=== PATIENT | female | born 1945 | race Caucasian/White ===

== ENCOUNTER 2020-05-20 04:24 | Inpatient (IN) | payer MEDICARE ==
--- NOTE | 2020-05-20 07:14 | CT ---
PRELIMINARY REPORT/[facility]/EMERGENCY AFTER HOURS PROCEDURE EXAM: CT Head Without Intravenous Contrast. CLINICAL HISTORY: FALL, NO LOC. TRIPPED MECHANICAL FALL. LEFT LEG PAIN. PATIENT WAS ABLE TO WALK FOR EMS. TECHNIQUE: Axial computed tomography images of the head/brain without intravenous contrast. COMPARISON: None provided. FINDINGS: BRAIN: No acute intraparenchymal hemorrhage. No mass lesion. No CT evidence for acute territorial infarct. N o midline shift or extra-axial collection. Mild age-related atrophy. Mild periventricular deep white matter small vessel change. Old lacunar infarction of the left basal ganglia. VENTRICLES: No hydrocephalus. ORBITS: The orbits are unremarkable. SINUSES AND MASTOIDS: The paranasal sinuses and mastoid air cells are clear. SOFT TISSUES: No significant facial or scalp soft tissue swelling evident. No radiopaque foreign body is seen. BONES: No acute skull fracture. IMPRESSION: No acute intracranial abnormality. There is mild age-related atrophy and periventricular deep white matter small vessel change. Old infarction of the left basal ganglia. ELECTRONICALLY SIGNED BY: Laura Rivera DO May 20, 2020 5:37:23 AM [employer]PERVISOR This report is intended for review by the ordering physician only, in accordance of law. If you recei ve this report in error, please call [facility] at [phone]. FINAL REPORT Exam: Head CT without contrast HISTORY: Fall. Pain. COMPARISON: none FINDINGS: Hemorrhage: No intraparenchymal hemorrhage or extra-axial hematoma. Brain parenchyma: Cortical borrego-white matter differentiation is preserved. No mass effect or midline shift. Basilar cisterns are patent.Remote lacunar infarcts involving the left and right deep borrego matter structures as well as the nevarez radiata bilaterally Ventricular system: Ventricles and sulci are patent and symmetric. Calvarium: Intact. Sinuses and mastoid air cells: Adequate aeration. IMPRESSION: 1. This report is in agreement with initial report by [facility]. 2. No intracranial post traumatic sequelae. Transcribed Date/Time: 05/20/2020 8:24 AM
--- NOTE | 2020-05-20 07:39 | RAD ---
AP view of the pelvis INDICATION: Trauma COMPARISON: None. FINDINGS: Bones: No acute fracture or subluxation is demonstrated. Bone mineralization is diminished. Hips: There is mild degenerative change of both hips. SI joints and symphysis pubis: Normal appearing. Intrapelvic contents: Within normal limits. IMPRESSION: No acute osseous abnormality.
--- NOTE | 2020-05-20 07:39 | CT ---
EXAM: CT Lower Ext Lt WO Con DATE: 05/20/2020 6:30 AM INDICATION: History of mechanical fall with left hip pain COMPARISON: Left hip radiographs dated May 20, 2020 FINDING: No displaced left hip fracture is evident. There is diffuse osteopenia. There is mild degen erative arthrosis of the left hip and left knee. There is mild degenerative change of the symphysis pubis. No enlarged lymph nodes are evident. Visualized intrapelvic contents appear within normal limi ts. The uterus is surgically absent. IMPRESSION:No acute osseous abnormality.
--- NOTE | 2020-05-20 07:40 | RAD ---
XR Hip Lt 2-3 View INDICATION: Fall with left hip pain COMPARISON: None FINDINGS: Bones: There is diffuse osteopenia. No acute fracture or subluxation is demonstrated. Enthesopathic c hanges seen off the left ischial tuberosity. Hip joint: Mild degenerative changes seen involving the left hip. SI joints and symphysis pubis: Radiographically normal. Intrapelvic contents: Visualized bowel gas pattern is within normal limits. Surrounding soft tissues: Radiographically normal. IMPRESSION: 1. No acute osseous abnormality.
[2020-05-20 10:56] LABS: #Eosinphils 0.1 thou/uL (0.0-0.7); #Lymphocytes 1.2 thou/uL (1.20-3.40); #Monocytes 0.9 thou/uL (0.11-0.59); %Basophils 0.5 % (0.0-1.0); %Eosinophils 1.6 % (0.0-10.0); %Lymphocytes 19.6 % (21.0-51.0); %Neutrophils 64.3 % (42.0-75.0); Hemoglobin 11.5 g/dL (12.0-16.0); Mean Corpuscular HGB CONC 32.9 g/dL (32.0-36.0); Mean Corpuscular Hemoglobin 28.2 pg (27.0-31.0); Mean Corpuscular Volume 85.6 fL (78.0-98.0); Mean Platelet Volume 8.6 fL (7.4-10.4); Platelet Count 170 thou/uL (130-400); RBC Distribution Width 12.5 % (11.5-14.5); Red Blood Cell (RBC) Count 4.09 mill/uL (4.20-5.40); White Blood Cell (WBC) Count 6.2 thou/uL (4.8-10.8)
[2020-05-20 10:59] LABS: Bilirubin Negative (Negative); Blood, Urine Negative (Negative); Clarity Clear (Clear); Glucose, Urine (Dipstick) Normal (Negative); Ketone, Urine 10 mg/dL (Negative); Leukocyte Negative Leu/uL (Negative); Nitrite Negative (Negative); Protein, Urine (Dipstick) 20 mg/dL (Neg-Trace); Specific Gravity, Urine 1.023 (1.002-1.036); Urobilinogen Normal mg/dL (Less than 2)
--- NOTE | 2020-05-20 11:04 | RAD ---
CHEST 1 VIEW: Date: 05/20/2020 HISTORY: Injury from a fall. COMPARISON: 12/02/2012. FINDINGS: Less than optimal inspiration with some minimal horizontal linear and parenchymal changes in the mid and lower lung zones, having more the appearance of subsegmental atelectasis. No evidence for pneumot horax. No confluent pneumonia. No significant pleural effusion. IMPRESSION: Bibasilar horizontal linear and parenchymal changes most suggestive of bilateral partial atelectasis without other acute process. POS: AH
[2020-05-20 11:20] LABS: ALT (SGPT) 16 U/L (8-55); AST (SGOT) 25 U/L (5-34); Albumin 3.2 g/dL (3.4-4.8); Alkaline Phosphatase 66 U/L (40-110); Anion Gap 13 mmol/L (10-20); BUN (Urea Nitrogen) 13 mg/dL (9.8-20.1); Bilirubin, Total 0.6 mg/dL (0.2-1.2); CK (CPK) 492 U/L (29-168); Calc. Creatinine Clearance 0 mL/min (70-130); Carbon Dioxide 24 mmol/L (23-31); Chloride 106 mmol/L (98-107); Globulin 2.4 g/dL (2.4-3.5); Glucose 97 mg/dL (83-110); Magnesium 1.8 mg/dL (1.6-2.6); Protein, Total 5.6 g/dL (6.0-8.3); Sodium 140 mmol/L (136-145)
--- NOTE | 2020-05-20 12:33 | PDOC.FPRHP ---
- History of Present Illness Chief Complaint: AMS, falls History of Present Illness: 75yo F presents from home with complaint of worsening mental status and recurrent falls. Pt lives with son who is also MPOA. Majority of hx was obtained from him. States pt has Hx of 2 previous CVA's. Has had declining mental status since first CVA 2 years ago. 8 months ago was seen by neuro specialist in [place] and diagnosed with a degenerative brain disease that he does not recall the name for and was started on carbidopa levodopa - states the disease is not parkinson's but is similar to it (Lewey Body?). Son states that over past 8 months pt has required more assistance and has been living with him. Over the past 2 weeks the patient has seemed to develop a rapid decline and has needed assistance with essentially all activity of daily living. She is able to ambulate but with assistance. He states she has been falling more frequently as well. She fell yesterday and when helping her up he injured his back which he has chronic problems with. She fell again last night and he needed to call his brother for assistance getting her up. They were concerned she injured something so they brought her to the ED to be evaluated. ED Course: Received 40 meq potassium Xray of hip, chest CT head - Allergies/Adverse Reactions Allergies Allergy/AdvReac Type Severity Reaction Status Date / Time erythromycin base Allergy Mild Rash Verified 05/20/20 12:38 - History PMHx: CVA x2, neurodegenerative dementia, HTN, HLD, Depression PSHx: Hysterectomy FHx: Not pertinent Social: PCP: Dr. Kinney, [facility] - Review of Systems ROS unobtainable: due to mental status Musculoskeletal: reports: pain (left hip pain) - Vital signs BP: 128/53, MAP: 78, Pulse: 72, Resp: 24, Temp: 99.3 (Oral), Pain: 7, O2 sat: 98 on (Room Air) - Physical Exam Constitutional: NAD, well developed HEENT: PERRLA, EOMI, MMM Heart: RRR, normal S1/S2 Lungs: CTAB, no respiratory distress Abdomen: soft, non-tender, bowel sounds present Neurological: no focal deficit, CN II-XII intact -Neurological: Difficult for patient to hold focus, orientation waxes and wanes but at best is A&O x3, seems confused by some simple questions but follows commands well Skin: no rash/lesions, good turgor Heme/Lymphatic: no unusual bruising or bleeding, no petechia -Psychiatric: Distant and recent memory impaired FMR H&P: Results - Labs Result Diagrams: 05/20/20 10:34 05/20/20 10:34 Lab results: WBC 6.2 thou/uL (4.8-10.8) 05/20/20 10:34 Hgb 11.5 g/dL (12.0-16.0) L 05/20/20 10:34 Hct 35.0 % (36.0-47.0) L 05/20/20 10:34 MCV 85.6 fL (78.0-98.0) 05/20/20 10:34 Plt Count 170 thou/uL (130-400) 05/20/20 10:34 Neutrophils % 64.3 % (42.0-75.0) 05/20/20 10:34 Sodium 140 mmol/L (136-145) 05/20/20 10:34 Potassium 3.0 mmol/L (3.5-5.1) L 05/20/20 10:34 Chloride 106 mmol/L (98-107) 05/20/20 10:34 Carbon Dioxide 24 mmol/L (23-31) 05/20/20 10:34 BUN 13 mg/dL (9.8-20.1) 05/20/20 10:34 Creatinine 0.69 mg/dL (0.6-1.1) 05/20/20 10:34 Glucose 97 mg/dL (83-110) 05/20/20 10:34 Calcium 8.0 mg/dL (7.8-10.44) 05/20/20 10:34 Total Bilirubin 0.6 mg/dL (0.2-1.2) 05/20/20 10:34 AST 25 U/L (5-34) 05/20/20 10:34 ALT 16 U/L (8-55) 05/20/20 10:34 Alkaline Phosphatase 66 U/L (40-110) 05/20/20 10:34 Creatine Kinase 492 U/L (29-168) H 05/20/20 10:34 Serum Total Protein 5.6 g/dL (6.0-8.3) L 05/20/20 10:34 Albumin 3.2 g/dL (3.4-4.8) L 05/20/20 10:34 Urine Ketones 10 mg/dL (Negative) A 05/20/20 10:20 Urine Blood Negative (Negative) 05/20/20 10:20 Urine Nitrite Negative (Negative) 05/20/20 10:20 Ur Leukocyte Esterase Negative Jerry/uL (Negative) 05/20/20 10:20 - Radiology Interpretation Chest x-ray Status: report reviewed by me (Bibasilar horizontal linear and parenchymal changes most suggestive of bilateral partial atelectasis without other acute process.) CT scan - head Status: report reviewed by me (No acute intracranial abnormality. There is mild age-related atrophy and periventricular deep white matter small vessel change. Old infarction of the left basal ganglia.) Other Status: report reviewed by me (hip/pelvis xray and CT - no acute osseos abnormal ity) FMR H&P: A/P - Plan Encephalopathy - Subacute on chronic - Likely related to neuro degenerative process - CT confirmed cerebrovascular disease and previous CVA - No signs of acute stroke warranting MRI - PT/OT to assess - Continue home rx Chronic HTN, HLD, vascular disease - Continue asa, lisinopril, statin Depression - Was taking two SSRI at home - Will continue sertraline only, son thinks this was supposed to be correct rx Diet: Regular IVF: LR @ 100ml x 1L Code status: DNAR VTE: ppx lovenox PCP: Giuseppe Dietrich Dispo: Admit to medical obs. ELOS <48hr. FMR H&P: Upper Level - Plan Date/Time: 05/20/20 5084
[2020-05-20] MEDS ORDERED: Potassium Chloride 40 MEQ in Sodium Chloride 0.9% 250 ML 250 ML IVPB SCH (12:45)
[2020-05-20 14:42] LABS: Hemoglobin A1c 5.7 % (4.0-6.0)
[2020-05-20] MEDS ORDERED: Potassium Chloride 20 MEQ in Lactated Ringer's 1,000 ML IV SCH (15:28)
[2020-05-20] MEDS ORDERED: Senokot S 8.6-50 MG TAB PO PRN (15:28)
[2020-05-20 16:30] VITALS: BMI 38.2
[2020-05-20] MEDS: Acetaminophen 325 MG TAB PO PRN (19:04)
[2020-05-20] MEDS: Carbidopa/Levodopa 25-100 mg Tablet PO SCH (19:53)
[2020-05-20] MEDS: Pramipexole Di-HCl 0.25 MG TAB PO SCH (19:53)
[2020-05-21] MEDS: Levothyroxine Sodium 100 MCG TAB PO SCH (05:20)
[2020-05-21 05:43] LABS: #Eosinphils 0.1 thou/uL (0.0-0.7); #Lymphocytes 0.8 thou/uL (1.20-3.40); #Monocytes 0.9 thou/uL (0.11-0.59); #Neutrophils 5.8 thou/uL (1.40-6.50); %Basophils 0.4 % (0.0-1.0); %Eosinophils 1.1 % (0.0-10.0); %Lymphocytes 10.7 % (21.0-51.0); %Monocytes 11.3 % (0.0-10.0); %Neutrophils 76.5 % (42.0-75.0); Hemoglobin 11.7 g/dL (12.0-16.0); Mean Corpuscular HGB CONC 32.8 g/dL (32.0-36.0); Mean Corpuscular Hemoglobin 28.2 pg (27.0-31.0); Mean Platelet Volume 8.7 fL (7.4-10.4); Platelet Count 183 thou/uL (130-400); RBC Distribution Width 12.6 % (11.5-14.5); Red Blood Cell (RBC) Count 4.15 mill/uL (4.20-5.40); White Blood Cell (WBC) Count 7.6 thou/uL (4.8-10.8)
--- NOTE | 2020-05-21 05:52 | PDOC.FM ---
- Subjective Subjective: Pt resting comfortably in bed this AM. No acute events overnight. - Objective Vital Signs & Weight: Vital Signs (12 hours) Temp Pulse Resp BP BP Pulse Ox 05/21/20 03:29 98.8 F 78 16 152/80 H 93 L 05/20/20 23:12 98.7 F 77 16 131/75 96 05/20/20 20:05 98.4 F 73 16 123/69 94 L 05/20/20 19:50 98.4 F 73 16 123/69 94 L Weight Weight 88.451 kg I&O: 05/19/20 05/20/20 05/21/20 06:59 06:59 06:59 Intake Total 2240 Balance 2240 Result Diagrams: 05/21/20 05:16 05/21/20 05:17 Phys Exam - Physical Examination Constitutional: NAD HEENT: moist MMs Neck: supple Respiratory: no wheezing, no rales, no rhonchi, clear to auscultation bilateral Cardiovascular: RRR, no significant murmur, no rub Gastrointestinal: soft, non-tender, no distention, positive bowel sounds Dx/Plan - Plan Plan: ##Encephalopathy - Subacute on chronic - Likely related to neuro degenerative process - CT confirmed cerebrovascular disease and previous CVA - No signs of acute stroke warranting MRI - PT/OT to assess - Continue home rx ##Chronic HTN, HLD, vascular disease - Continue asa, lisinopril, statin ##Depression - Was taking two SSRI at home - Will continue sertraline only, son thinks this was supposed to be correct rx Diet: Regular IVF: LR @ 100ml x 1L Code status: DNAR VTE: ppx lovenox PCP: Giuseppe Dietrich Dispo as of 05/21: Planned for patient to be discharged home today and will need to be admitted to rehab from outpatient setting. Family aware of this plan and are agreeable.
[2020-05-21 06:06] LABS: Anion Gap 13 mmol/L (10-20); BUN (Urea Nitrogen) 11 mg/dL (9.8-20.1); Calc. Creatinine Clearance 111 mL/min (70-130); Calcium 7.8 mg/dL (7.8-10.44); Carbon Dioxide 22 mmol/L (23-31); Chloride 107 mmol/L (98-107); Glucose 111 mg/dL (83-110); Potassium 3.3 mmol/L (3.5-5.1); Sodium 139 mmol/L (136-145)
[2020-05-21] MEDS ORDERED: Potassium Chloride 40 MEQ in Sodium Chloride 0.9% 250 ML 250 ML IVPB SCH (08:15)
[2020-05-21] MEDS ORDERED: FLU VACC QS2020-21(65YR UP)/PF 240 MCG/0.7 ML SYRINGE IM ONE (09:00)
[2020-05-21] MEDS: Pramipexole Di-HCl 0.25 MG TAB PO SCH ×2 (10:02→19:36)
[2020-05-21] MEDS: Lisinopril 20 MG TAB PO SCH (10:04)
[2020-05-21] MEDS: Enoxaparin Sodium 40 MG/0.4 ML SYRINGE SC SCH (10:04)
[2020-05-21] MEDS: Carbidopa/Levodopa 25-100 mg Tablet PO SCH ×3 (10:04→19:35)
[2020-05-21 13:44] LABS: Anion Gap 12 mmol/L (10-20); BUN (Urea Nitrogen) 9 mg/dL (9.8-20.1); Calc. Creatinine Clearance 106 mL/min (70-130); Calcium 7.6 mg/dL (7.8-10.44); Carbon Dioxide 21 mmol/L (23-31); Chloride 107 mmol/L (98-107); Glucose 155 mg/dL (83-110); Magnesium 1.9 mg/dL (1.6-2.6); Potassium 3.4 mmol/L (3.5-5.1); Sodium 137 mmol/L (136-145)
[2020-05-21] MEDS: Acetaminophen 325 MG TAB PO PRN (16:34)
[2020-05-21] MEDS ORDERED: Potassium Chloride 20 MEQ TAB PO SCH (17:00)
[2020-05-21] MEDS: Loperamide HCl 2 MG CAP PO PRN (19:35)
[2020-05-21 22:17] LABS: SARS-CoV-2 MS2 Positive; SARS-CoV-2 N Gene Negative; SARS-CoV-2 S Gene Negative; SARS-CoV-2 by NAA Not Detected (NotDetected); SARS-CoV-2 orf1ab Negative
[2020-05-22] MEDS: Acetaminophen 325 MG TAB PO PRN (05:38)
[2020-05-22] MEDS: Levothyroxine Sodium 100 MCG TAB PO SCH (05:38)
--- NOTE | 2020-05-22 05:50 | PDOC.FM ---
- Subjective Subjective: Pt resting in bed this AM. No acute events overnight. Tells me that she would like to be called Brina and not Lauren. - Objective Vital Signs & Weight: Vital Signs (12 hours) Temp Pulse Resp BP Pulse Ox 05/22/20 03:47 97.5 F L 60 20 145/78 H 96 05/21/20 22:46 97.5 F L 64 20 111/69 95 05/21/20 20:22 99.1 F 62 20 120/73 94 L 05/21/20 20:00 94 L Weight Weight 88.451 kg I&O: 05/20/20 05/21/20 05/22/20 06:59 06:59 06:59 Intake Total 2240 2410 Balance 2240 2410 Result Diagrams: 05/21/20 05:16 05/22/20 05:24 Phys Exam - Physical Examination Constitutional: NAD HEENT: moist MMs Neck: supple Respiratory: no wheezing, no rales, no rhonchi, clear to auscultation bilateral Cardiovascular: RRR, no significant murmur, no rub Gastrointestinal: soft, non-tender, no distention, positive bowel sounds Deviation from normal: A&O x1 Dx/Plan - Plan Plan: ##Encephalopathy - Subacute on chronic - Likely related to neuro degenerative process, Lewy Body Dimentia - CT confirmed cerebrovascular disease and previous CVA - No signs of acute stroke warranting MRI - PT/OT assessed pt and advised SNF vs. Inpt Rehab - Continue home rx ##Chronic HTN, HLD, vascular disease - Continue ASA, lisinopril, statin ##Depression - Was taking two SSRI at home - Will continue sertraline only, son thinks this was supposed to be correct rx Diet: Regular Code: DNAR VTE: Lovenox PCP: LOSS PREVENTION MANAGER Dispo as of 05/22: Planned for patient to be discharged home however, PT and OT recommended SNF vs. Inpt Rehab. Pending CM and placement at this time. Addendum - Attending - Attending Attestation Date/Time: 05/22/20 1740 I personally evaluated the patient and discussed the management with Dr. Baca. I agree with the History, Examination, Assessment and Plan documented above with any addition or exceptions noted below. Pt stable and still confused. Awaiting case mgmt for placement. Will f/u with PT/OT recs.
[2020-05-22 06:11] LABS: Anion Gap 12 mmol/L (10-20); BUN (Urea Nitrogen) 6 mg/dL (9.8-20.1); Calc. Creatinine Clearance 113 mL/min (70-130); Calcium 7.5 mg/dL (7.8-10.44); Carbon Dioxide 22 mmol/L (23-31); Chloride 110 mmol/L (98-107); Glucose 96 mg/dL (83-110); Magnesium 1.9 mg/dL (1.6-2.6); Potassium 3.9 mmol/L (3.5-5.1); Sodium 140 mmol/L (136-145)
[2020-05-22 06:16] LABS: Phosphorus 1.9 mg/dL (2.3-4.7)
[2020-05-22] MEDS ORDERED: PHOS-NAK 1 PKT PACK PO SCH (09:00)
[2020-05-22] MEDS: Pramipexole Di-HCl 0.25 MG TAB PO SCH ×2 (10:34→20:27)
[2020-05-22] MEDS: Enoxaparin Sodium 40 MG/0.4 ML SYRINGE SC SCH (10:34)
[2020-05-22] MEDS: Lisinopril 20 MG TAB PO SCH (10:35)
[2020-05-22] MEDS: Carbidopa/Levodopa 25-100 mg Tablet PO SCH ×3 (10:35→20:27)
[2020-05-23] MEDS: Levothyroxine Sodium 100 MCG TAB PO SCH (05:17)
--- NOTE | 2020-05-23 05:55 | PDOC.FM ---
- Subjective Subjective: Pt resting in bed this AM. No acute events overnight. - Objective Vital Signs & Weight: Vital Signs (12 hours) Temp Pulse Resp BP Pulse Ox 05/22/20 23:41 98.7 F 60 18 135/71 98 05/22/20 19:46 98.7 F 67 18 128/66 94 L Weight Weight 88.451 kg I&O: 05/21/20 05/22/20 05/23/20 06:59 06:59 06:59 Intake Total 2240 2410 720 Balance 2240 2410 720 Result Diagrams: 05/21/20 05:16 05/23/20 05:19 Phys Exam - Physical Examination Constitutional: NAD HEENT: moist MMs Neck: supple Respiratory: no wheezing, no rales, no rhonchi, clear to auscultation bilateral Cardiovascular: RRR, no significant murmur, no rub, gallop Gastrointestinal: soft, non-tender, no distention, positive bowel sounds Musculoskeletal: pulses present Neurological: moves all 4 limbs Deviation from normal: A&O x 1 Skin: no rash, normal turgor, cap refill <2 seconds Dx/Plan - Plan Plan: ##Encephalopathy 2/2 to chronic dementia with acute worsening - Likely related to neuro degenerative process, Lewy Body Dementia - CT confirmed cerebrovascular disease and previous CVA - No signs of acute stroke warranting MRI - PT/OT assessed pt and advised SNF vs. Inpt Rehab,have continued to work with pt, pt apparently has difficulty following commands - Continue home rx ##Chronic HTN, HLD, vascular disease - Continue ASA, lisinopril, statin ##Depression - Was taking two SSRI at home - Will continue sertraline only, son thinks this was supposed to be correct rx ##Electrolyte abnormalities -Has had hypokalemia, been repleating as necessary -Phos 1.9, Mag 1.9 -awaiting AM labs Code: DNAR Diet: Regular VTE: Lovenox PCP: PROPERTY ADMINISTRATOR Dispo as of 05/23: PT and OT recommended SNF vs. Inpt Rehab. Pending CM and placement at this time. Addendum - Attending - Attending Attestation Date/Time: 05/23/20 0312 I personally evaluated the patient and discussed the management with Dr. Baca. I agree with the History, Examination, Assessment and Plan documented above with any addition or exceptions noted below. Patient complained of chest pain this morning. She is unable to give additional history. Pt is tender to palpation of chest but will get a set of cardiac enzymes and ekg to further evaluate.
[2020-05-23 06:06] LABS: Anion Gap 13 mmol/L (10-20); BUN (Urea Nitrogen) 8 mg/dL (9.8-20.1); Calc. Creatinine Clearance 113 mL/min (70-130); Calcium 7.7 mg/dL (7.8-10.44); Carbon Dioxide 22 mmol/L (23-31); Glucose 106 mg/dL (83-110); Magnesium 1.8 mg/dL (1.6-2.6); Potassium 3.9 mmol/L (3.5-5.1); Sodium 137 mmol/L (136-145)
[2020-05-23 06:10] LABS: Chloride 106 mmol/L (98-107)
[2020-05-23] MEDS: Lactated Ringer's 1,000 ML IV SCH ×3 (06:26→19:48)
[2020-05-23] MEDS: Carbidopa/Levodopa 25-100 mg Tablet PO SCH ×3 (09:36→21:35)
[2020-05-23] MEDS: Lisinopril 20 MG TAB PO SCH (09:36)
[2020-05-23] MEDS: Pramipexole Di-HCl 0.25 MG TAB PO SCH ×2 (09:36→19:48)
[2020-05-23] MEDS: Enoxaparin Sodium 40 MG/0.4 ML SYRINGE SC SCH (09:37)
[2020-05-23 10:32] LABS: Troponin I Less than 0.010 ng/mL (< 0.028)
[2020-05-23] MEDS ORDERED: Ketorolac Tromethamine 30 MG/ML VIAL IVP SCH (10:45)
[2020-05-24] MEDS: Lactated Ringer's 1,000 ML IV SCH ×2 (05:24→15:26)
[2020-05-24] MEDS: Levothyroxine Sodium 100 MCG TAB PO SCH (05:24)
--- NOTE | 2020-05-24 06:11 | PDOC.FM ---
- Subjective Subjective: Pt resting in bed this AM. No acute events overnight. States that her son Jose De Jesus came to see her yesterday and this made her happy. - Objective Vital Signs & Weight: Vital Signs (12 hours) Temp Pulse Resp BP Pulse Ox 05/24/20 00:22 98.2 F 61 19 121/74 96 05/23/20 19:18 98.7 F 64 20 123/76 93 L Weight Weight 88.451 kg I&O: 05/22/20 05/23/20 05/24/20 06:59 06:59 06:59 Intake Total 2410 720 1580 Output Total 650 2100 Balance 2410 70 -520 Result Diagrams: 05/24/20 07:35 05/24/20 06:01 Phys Exam - Physical Examination Constitutional: NAD HEENT: moist MMs Neck: supple Respiratory: no wheezing, no rales, no rhonchi, clear to auscultation bilateral Cardiovascular: RRR, no significant murmur, no rub Gastrointestinal: soft, non-tender, no distention, positive bowel sounds Deviation from normal: A&O x 2 Skin: normal turgor Dx/Plan - Plan Plan: ##Delirium 2/2 acute worsening of dementia - Likely related to neuro degenerative process, Lewy Body Dementia - CT confirmed cerebrovascular disease and previous CVA - No signs of acute stroke warranting MRI - PT/OT assessed pt and advised SNF vs. Inpt Rehab,have continued to work with pt, pt apparently has difficulty following commands - Continue home rx ##Chronic HTN, HLD, vascular disease - Continue ASA, lisinopril, statin ##Depression - Was taking two SSRI at home - Will continue sertraline only, son thinks this was supposed to be correct rx ##Electrolyte abnormalities -Has had hypokalemia, been repleating as necessary -Phos 1.9, Mag 1.9, were replaced -monitoring BMPs Code: DNAR Diet: Regular VTE: Lovenox PCP: NYLON MENDER Dispo as of 05/24: PT and OT recommended SNF vs. Inpt Rehab. Pending CM and placement at this time. Addendum - Attending - Attending Attestation Date/Time: 05/24/20 1206 I personally evaluated the patient and discussed the management with Dr. Baca. I agree with the History, Examination, Assessment and Plan documented above with any addition or exceptions noted below.
[2020-05-24 06:43] LABS: Anion Gap 14 mmol/L (10-20); BUN (Urea Nitrogen) 7 mg/dL (9.8-20.1); Calc. Creatinine Clearance 111 mL/min (70-130); Carbon Dioxide 24 mmol/L (23-31); Chloride 107 mmol/L (98-107); Glucose 100 mg/dL (83-110); Magnesium 1.8 mg/dL (1.6-2.6); Potassium 3.7 mmol/L (3.5-5.1); Sodium 141 mmol/L (136-145)
[2020-05-24 08:00] LABS: #Eosinphils 0.1 thou/uL (0.0-0.7); #Lymphocytes 1.7 thou/uL (1.20-3.40); #Monocytes 0.6 thou/uL (0.11-0.59); %Basophils 0.5 % (0.0-1.0); %Eosinophils 1.6 % (0.0-10.0); %Lymphocytes 19.6 % (21.0-51.0); %Monocytes 6.9 % (0.0-10.0); %Neutrophils 71.5 % (42.0-75.0); Mean Corpuscular HGB CONC 31.4 g/dL (32.0-36.0); Mean Corpuscular Hemoglobin 26.8 pg (27.0-31.0); Mean Corpuscular Volume 85.2 fL (78.0-98.0); Mean Platelet Volume 8.6 fL (7.4-10.4); Platelet Count 243 thou/uL (130-400); RBC Distribution Width 12.8 % (11.5-14.5); Red Blood Cell (RBC) Count 4.48 mill/uL (4.20-5.40); White Blood Cell (WBC) Count 8.4 thou/uL (4.8-10.8)
[2020-05-24] MEDS: Lisinopril 20 MG TAB PO SCH (09:41)
[2020-05-24] MEDS: Carbidopa/Levodopa 25-100 mg Tablet PO SCH ×3 (09:42→20:01)
[2020-05-24] MEDS: Enoxaparin Sodium 40 MG/0.4 ML SYRINGE SC SCH (09:42)
[2020-05-24] MEDS: Calcium Carbonate 500 MG ChewTAB PO PRN (09:43)
[2020-05-24] MEDS: Pramipexole Di-HCl 0.25 MG TAB PO SCH ×2 (09:43→20:01)
--- NOTE | 2020-05-24 15:19 | EKG ---
Test Reason : Blood Pressure : / mmHG Vent. Rate : 066 BPM Atrial Rate : 066 BPM P-R Int : 132 ms QRS Dur : 084 ms QT Int : 400 ms P-R-T Axes : 027 -18 004 degrees QTc Int : 419 ms Normal sinus rhythm Voltage criteria for left ventricular hypertrophy Nonspecific ST abnormality Abnormal ECG When compared with ECG of 20-MAY-2020 10:22, (Unconfirmed) QRS axis Shifted right T wave inversion more evident in Inferior leads Confirmed by BELKIS JIANG, DR. Myles ([id number]) on 05/24/2020 3:18:51 PM Referred By: ALO Confirmed By:DR. Shameka TAMAYO MD
[2020-05-24] MEDS: Loperamide HCl 2 MG CAP PO PRN (20:01)
[2020-05-24] MEDS ORDERED: hydrOXYzine 25 MG TAB PO SCH (23:30)
[2020-05-25] MEDS: Levothyroxine Sodium 100 MCG TAB PO SCH (05:07)
--- NOTE | 2020-05-25 06:17 | PDOC.FM ---
- Subjective Subjective: Patient overall feeling well. Son in the room, discussed recent COVID diagnosis for father that is on hospice that is causing patient to be anxious-received 25 mg Atarax overnight. - Objective Vital Signs & Weight: Vital Signs (12 hours) Temp Pulse Resp BP Pulse Ox 05/25/20 04:08 97.6 F 64 16 149/81 H 93 L 05/24/20 20:00 98 F 62 16 145/75 H 94 L Weight Weight 88.451 kg I&O: 05/23/20 05/24/20 05/25/20 06:59 06:59 06:59 Intake Total 720 1580 3240 Output Total 650 2100 2000 Balance 70 -520 1240 Result Diagrams: 05/24/20 07:35 05/25/20 05:24 Phys Exam - Physical Examination Constitutional: NAD Respiratory: no wheezing, no rales, no rhonchi, clear to auscultation bilateral Cardiovascular: RRR, no significant murmur, no rub Gastrointestinal: soft, non-tender, no distention, positive bowel sounds Musculoskeletal: no edema Dx/Plan - Plan Plan: Delirium 2/2 acute worsening of dementia - Likely related to neuro degenerative process, Lewy Body Dementia - CT confirmed cerebrovascular disease and previous CVA - No signs of acute stroke warranting MRI - PT/OT assessed pt and advised SNF vs. Inpt Rehab,have continued to work with pt, pt apparently has difficulty following commands - Continue home rx Chronic HTN, HLD, vascular disease - Continue ASA, lisinopril, statin Depression - Was taking two SSRI at home - Will continue sertraline only, son thinks this was supposed to be correct rx - Will consider Atarax if mood changes given relief with dose last night. Electrolyte abnormalities -Has had hypokalemia, been repleating as necessary -Phos 1.9, Mag 1.9, were replaced -monitoring BMPs Code: DNAR Diet: Regular VTE: Lovenox PCP: LOGISTIC SPECIALIST Dispo as of 05/24: PT and OT recommended SNF vs. Inpt Rehab. Pending CM and placement at this time. Addendum - Attending - Attending Attestation Date/Time: 05/25/20 0622 I personally evaluated the patient and discussed the management with Dr. Goldberg. I agree with the History, Examination, Assessment and Plan documented above with any addition or exceptions noted below. Patient stable. Working with CM on nursing home placement.
[2020-05-25 06:31] LABS: Anion Gap 13 mmol/L (10-20); BUN (Urea Nitrogen) 6 mg/dL (9.8-20.1); Calc. Creatinine Clearance 108 mL/min (70-130); Calcium 8.1 mg/dL (7.8-10.44); Carbon Dioxide 25 mmol/L (23-31); Chloride 107 mmol/L (98-107); Glucose 101 mg/dL (83-110); Magnesium 1.8 mg/dL (1.6-2.6); Potassium 3.5 mmol/L (3.5-5.1); Sodium 141 mmol/L (136-145)
[2020-05-25] MEDS: Lisinopril 20 MG TAB PO SCH (09:57)
[2020-05-25] MEDS: Pramipexole Di-HCl 0.25 MG TAB PO SCH ×2 (09:57→20:52)
[2020-05-25] MEDS: Carbidopa/Levodopa 25-100 mg Tablet PO SCH ×3 (09:57→20:52)
[2020-05-25] MEDS: Enoxaparin Sodium 40 MG/0.4 ML SYRINGE SC SCH (09:58)
[2020-05-25] MEDS: Lactated Ringer's 1,000 ML IV SCH (14:59)
[2020-05-25] MEDS: Acetaminophen 325 MG TAB PO PRN ×2 (15:48→20:56)
[2020-05-25] MEDS: Loperamide HCl 2 MG CAP PO PRN (20:54)
[2020-05-26] MEDS: Calcium Carbonate 500 MG ChewTAB PO PRN (00:43)
[2020-05-26] MEDS ORDERED: hydrOXYzine 25 MG TAB PO SCH ×3 (01:15→21:00)
[2020-05-26] MEDS: Levothyroxine Sodium 100 MCG TAB PO SCH (05:37)
--- NOTE | 2020-05-26 06:24 | PDOC.FM ---
- Subjective Subjective: Patient doing well, sleeping. Son in room. Son reported that she has been having diarrhea for 2 weeks-NB, no recent abx, no recent hospitalization. She has also been urinating more than normal for the past 6 mos. - Objective MAR Reviewed: Yes Vital Signs & Weight: Vital Signs (12 hours) Temp Pulse Resp BP Pulse Ox 05/25/20 23:31 98.4 F 60 19 129/69 95 05/25/20 19:25 98.0 F 69 20 126/77 93 L Weight Weight 88.451 kg I&O: 05/24/20 05/25/20 05/26/20 06:59 06:59 06:59 Intake Total 1580 3240 480 Output Total 2100 2000 Balance -520 1240 480 Result Diagrams: 05/24/20 07:35 05/26/20 06:48 Phys Exam - Physical Examination Constitutional: NAD Respiratory: no wheezing, no rales, no rhonchi, clear to auscultation bilateral Cardiovascular: RRR, no significant murmur, no rub Gastrointestinal: soft, non-tender, no distention, positive bowel sounds Dx/Plan - Plan Plan: Delirium 2/2 acute worsening of dementia - Likely related to neuro degenerative process, Lewy Body Dementia - CT confirmed cerebrovascular disease and previous CVA - No signs of acute stroke warranting MRI - PT/OT assessed pt and advised SNF vs. Inpt Rehab,have continued to work with pt, pt apparently has difficulty following commands - Continue home rx Chronic HTN, HLD, vascular disease - Continue ASA, lisinopril, statin Depression - Was taking two SSRI at home - Will continue sertraline only, son thinks this was supposed to be correct rx - Will consider Atarax if mood changes given relief with dose last night. Diarrhea - likely not infectious cause given lack of other symptoms, no abx use, or recent hospitalization - Will start fiber supplementation Electrolyte abnormalities, resolved -Had hypokalemia, has been stable, will dc BMP Code: DNAR Diet: Regular VTE: Lovenox PCP: PAYROLL AND BENEFITS ASSISTANT Dispo as of 05/24: PT and OT recommended SNF vs. Inpt Rehab. Pending CM and placement at this time. Addendum - Attending - Attending Attestation Date/Time: 05/26/20 7425 I personally evaluated the patient and discussed the management with Dr. Goldberg. I agree with the History, Examination, Assessment and Plan documented above with any addition or exceptions noted below.
[2020-05-26 07:08] LABS: Hemoglobin A1c 5.8 % (4.0-6.0)
[2020-05-26 07:22] LABS: Phosphorus 3.7 mg/dL (2.3-4.7)
[2020-05-26 07:23] LABS: Anion Gap 14 mmol/L (10-20); BUN (Urea Nitrogen) 13 mg/dL (9.8-20.1); Calc. Creatinine Clearance 103 mL/min (70-130); Carbon Dioxide 24 mmol/L (23-31); Chloride 106 mmol/L (98-107); Glucose 129 mg/dL (83-110); Magnesium 1.8 mg/dL (1.6-2.6); Potassium 3.7 mmol/L (3.5-5.1); Sodium 140 mmol/L (136-145)
[2020-05-26] MEDS: Enoxaparin Sodium 40 MG/0.4 ML SYRINGE SC SCH (09:37)
[2020-05-26] MEDS: Carbidopa/Levodopa 25-100 mg Tablet PO SCH ×3 (09:37→20:04)
[2020-05-26] MEDS: Pramipexole Di-HCl 0.25 MG TAB PO SCH ×2 (09:37→20:04)
[2020-05-26] MEDS: Lisinopril 20 MG TAB PO SCH (09:37)
[2020-05-26] MEDS: Metamucil PACK PO SCH (09:40)
--- NOTE | 2020-05-27 06:31 | PDOC.FM ---
- Subjective Subjective: Patient doing well, eating breakfast, no acute concerns - Objective Vital Signs & Weight: Vital Signs (12 hours) Temp Pulse Resp BP Pulse Ox 05/27/20 03:28 97.8 F 60 20 138/81 93 L 05/26/20 23:23 98.7 F 60 20 138/82 95 05/26/20 19:48 98.6 F 62 18 143/80 H 94 L Weight Weight 88.451 kg I&O: 05/25/20 05/26/20 05/27/20 06:59 06:59 06:59 Intake Total 3240 480 Output Total 1999 1999 Balance 1240 480 -1999 Result Diagrams: 05/24/20 07:35 05/26/20 06:48 Phys Exam - Physical Examination Constitutional: NAD Respiratory: no wheezing, no rales, no rhonchi Cardiovascular: RRR, no significant murmur, no rub Gastrointestinal: soft, non-tender, no distention, positive bowel sounds Dx/Plan - Plan Plan: Delirium 2/2 acute worsening of dementia - Likely related to neuro degenerative process, Lewy Body Dementia - CT confirmed cerebrovascular disease and previous CVA - No signs of acute stroke warranting MRI - PT/OT assessed pt and advised SNF vs. Inpt Rehab,have continued to work with pt, pt apparently has difficulty following commands - Continue home rx - If patient becomes anxious/delirious, start with reorientation, opening blinds during the day, and assisting with patient needs. We will try to avoid atarax at this time given it is on the BEERs criteria. Chronic HTN, HLD, vascular disease - Continue ASA, lisinopril, statin Depression - Was taking two SSRI at home - Will continue sertraline only, son thinks this was supposed to be correct rx - Will consider Atarax if mood changes given relief with dose last night. Diarrhea - likely not infectious cause given lack of other symptoms, no abx use, or recent hospitalization - Will start fiber supplementation - Likely not actual diarrhea, just loose stools Electrolyte abnormalities, resolved -Had hypokalemia, has been stable, will dc BMP Code: DNAR Diet: Regular VTE: Lovenox PCP: NAIL KEGGER Dispo as of 05/24: PT and OT recommended SNF vs. Inpt Rehab. Pending CM and placement at this time. Spoke with CM yesterday, one option was out of network, looking at other options. Addendum - Attending - Attending Attestation Date/Time: 05/27/20 3898 I personally evaluated the patient and discussed the management with Dr. Goldberg. I agree with the History, Examination, Assessment and Plan documented above with any addition or exceptions noted below. Patient stable. Awaiting placement.
[2020-05-27] MEDS: Acetaminophen 325 MG TAB PO PRN ×2 (06:59→15:41)
[2020-05-27] MEDS: Levothyroxine Sodium 100 MCG TAB PO SCH (06:59)
[2020-05-27] MEDS: Carbidopa/Levodopa 25-100 mg Tablet PO SCH ×3 (09:25→19:36)
[2020-05-27] MEDS: Metamucil PACK PO SCH (09:25)
[2020-05-27] MEDS: Pramipexole Di-HCl 0.25 MG TAB PO SCH ×2 (09:25→19:36)
[2020-05-27] MEDS: Enoxaparin Sodium 40 MG/0.4 ML SYRINGE SC SCH (09:26)
[2020-05-27] MEDS: Lisinopril 20 MG TAB PO SCH (09:26)
[2020-05-27] MEDS: Calcium Carbonate 500 MG ChewTAB PO PRN (19:36)
[2020-05-27] MEDS: Melatonin 3 MG TAB PO PRN (22:10)
[2020-05-28] MEDS: Levothyroxine Sodium 100 MCG TAB PO SCH (06:36)
--- NOTE | 2020-05-28 06:56 | PDOC.FM ---
- Subjective Subjective: Patient doing well, no acute concerns today. Eating breakfast. - Objective MAR Reviewed: Yes Vital Signs & Weight: Vital Signs (12 hours) Temp Pulse Resp BP Pulse Ox 05/28/20 04:02 98.2 F 57 L 16 122/72 94 L 05/28/20 00:00 97.9 F 58 L 16 130/74 95 05/27/20 20:00 98.4 F 59 L 16 116/64 95 Weight Weight 88.451 kg I&O: 05/26/20 05/27/20 05/28/20 06:59 06:59 06:59 Intake Total 480 480 Output Total 2000 1100 Balance 480 1999 -405 Result Diagrams: 05/24/20 07:35 05/26/20 06:48 Phys Exam - Physical Examination Constitutional: NAD Respiratory: no wheezing, no rales, no rhonchi, clear to auscultation bilateral Cardiovascular: RRR, no significant murmur, no rub Gastrointestinal: soft, non-tender, no distention Dx/Plan - Plan Plan: Delirium 2/2 acute worsening of dementia - Likely related to neuro degenerative process, Lewy Body Dementia - CT confirmed cerebrovascular disease and previous CVA - No signs of acute stroke warranting MRI - PT/OT assessed pt and advised SNF vs. Inpt Rehab,have continued to work with pt, pt apparently has difficulty following commands - Continue home rx - If patient becomes anxious/delirious, start with reorientation, opening blinds during the day, and assisting with patient needs. We will try to avoid atarax at this time given it is on the BEERs criteria. Chronic HTN, HLD, vascular disease - Continue ASA, lisinopril, statin Depression - Was taking two SSRI at home - Will continue sertraline only, son thinks this was supposed to be correct rx - Melatonin PRN QHS Diarrhea - likely not infectious cause given lack of other symptoms, no abx use, or recent hospitalization - Will start fiber supplementation - Likely just loose stools Electrolyte abnormalities, resolved -Had hypokalemia, has been stable, will dc BMP Hx of Diabetes - MD aware - a1c 5.8 - Patient likely does not need to be on outpatient therapy for DM2. Given normal A1c and appropriate fasting glucoses, inpatient therapy and accuchecks not necessary at this time. Code: DNAR Diet: Regular VTE: Lovenox PCP: GEOPHYSICAL ENGINEER Dispo as of 05/24: PT and OT recommended SNF vs. Inpt Rehab. Pending CM and placement at this time. At this time, patient medically stable to be DC'd when bed becomes available. Addendum - Attending - Attending Attestation Date/Time: 05/28/20 9765 I personally evaluated the patient and discussed the management with Dr. Goldberg. I agree with the History, Examination, Assessment and Plan documented above with any addition or exceptions noted below. Patient doing well. Stable, awaiting placement.
[2020-05-28] MEDS: Pramipexole Di-HCl 0.25 MG TAB PO SCH ×2 (08:08→21:35)
[2020-05-28] MEDS: Carbidopa/Levodopa 25-100 mg Tablet PO SCH ×3 (08:08→21:35)
[2020-05-28] MEDS: Metamucil PACK PO SCH (08:09)
[2020-05-28] MEDS: Enoxaparin Sodium 40 MG/0.4 ML SYRINGE SC SCH (08:09)
[2020-05-28] MEDS: Lisinopril 20 MG TAB PO SCH (08:09)
[2020-05-28] MEDS: Acetaminophen 325 MG TAB PO PRN (14:18)
[2020-05-28] MEDS: Melatonin 3 MG TAB PO PRN (23:48)
[2020-05-29] MEDS: Levothyroxine Sodium 100 MCG TAB PO SCH (05:10)
--- NOTE | 2020-05-29 05:53 | PDOC.FM ---
- Subjective Subjective: Patient doing well, no acute concerns. - Objective MAR Reviewed: Yes Vital Signs & Weight: Vital Signs (12 hours) Temp Pulse Resp BP Pulse Ox 05/29/20 03:11 98.1 F 61 16 118/70 96 05/28/20 23:32 98.0 F 60 18 126/75 95 05/28/20 20:00 97.8 F 66 18 110/69 95 Weight Weight 88.451 kg I&O: 05/27/20 05/28/20 05/29/20 06:59 06:59 06:59 Intake Total 980 1330 Output Total 1999 1600 1075 Balance -1999 -620 255 Result Diagrams: 05/24/20 07:35 05/26/20 06:48 Phys Exam - Physical Examination Constitutional: NAD Respiratory: no wheezing, no rales, no rhonchi, clear to auscultation bilateral Cardiovascular: RRR, no significant murmur, no rub Gastrointestinal: soft, non-tender, no distention, positive bowel sounds Dx/Plan - Plan Plan: Delirium 2/2 acute worsening of dementia - Likely related to neuro degenerative process, Lewy Body Dementia - CT confirmed cerebrovascular disease and previous CVA - No signs of acute stroke warranting MRI - PT/OT assessed pt and advised SNF vs. Inpt Rehab,have continued to work with pt, pt apparently has difficulty following commands - Continue home rx - If patient becomes anxious/delirious, start with reorientation, opening blinds during the day, and assisting with patient needs. We will try to avoid atarax at this time given it is on the BEERs criteria. Chronic HTN, HLD, vascular disease - Continue ASA, lisinopril, statin Depression - Was taking two SSRI at home - Will continue sertraline only, son thinks this was supposed to be correct rx - Melatonin PRN QHS Diarrhea - likely not infectious cause given lack of other symptoms, no abx use, or recent hospitalization - Will start fiber supplementation - Likely just loose stools Electrolyte abnormalities, resolved -Had hypokalemia, has been stable, will dc BMP Hx of Diabetes - MD aware - a1c 5.8 - Patient likely does not need to be on outpatient therapy for DM2. Given normal A1c and appropriate fasting glucoses, inpatient therapy and accuchecks not necessary at this time. Code: DNAR Diet: Regular VTE: Lovenox PCP: LPN OR MEDICAL ASSISTANT Dispo as of 05/24: PT and OT recommended SNF vs. Inpt Rehab. Pending CM and placement at this time. At this time, patient medically stable to be DC'd when bed becomes available. Addendum - Attending - Attending Attestation Date/Time: 05/29/20 0803 I personally evaluated the patient and discussed the management with Dr. Goldberg. I agree with the History, Examination, Assessment and Plan documented above with any addition or exceptions noted below. Patient stable. Awaiting placement.
[2020-05-29] MEDS: Pramipexole Di-HCl 0.25 MG TAB PO SCH ×2 (09:42→21:40)
[2020-05-29] MEDS: Carbidopa/Levodopa 25-100 mg Tablet PO SCH ×3 (09:42→21:40)
[2020-05-29] MEDS: Enoxaparin Sodium 40 MG/0.4 ML SYRINGE SC SCH (09:42)
[2020-05-29] MEDS: Lisinopril 20 MG TAB PO SCH (09:42)
[2020-05-29] MEDS: Metamucil PACK PO SCH (09:43)
--- NOTE | 2020-05-29 16:35 | EKG ---
Test Reason : Blood Pressure : / mmHG Vent. Rate : 071 BPM Atrial Rate : 071 BPM P-R Int : 144 ms QRS Dur : 092 ms QT Int : 406 ms P-R-T Axes : 000 195 156 degrees QTc Int : 441 ms Normal sinus rhythm Right superior axis deviation T wave abnormality, consider inferior ischemia Abnormal ECG Confirmed by LARRY Mirza, GM ([id number]), editor in chief CHERISE BOND ([id number]) on 05/29/2020 4:35:36 PM Referred By: Confirmed By:GM JUAREZ M.D.
[2020-05-29] MEDS: Melatonin 3 MG TAB PO PRN (21:40)
[2020-05-30] MEDS: Levothyroxine Sodium 100 MCG TAB PO SCH (05:19)
--- NOTE | 2020-05-30 05:57 | PDOC.FM ---
- Subjective Subjective: patient doing well this AM, eating breakfast. No acute concerns. - Objective MAR Reviewed: Yes Vital Signs & Weight: Vital Signs (12 hours) Temp Pulse Resp BP Pulse Ox 05/30/20 03:19 98.3 F 63 16 114/70 95 05/29/20 20:00 97.5 F L 62 18 98/55 L 95 Weight Weight 88.451 kg I&O: 05/28/20 05/29/20 05/30/20 06:59 06:59 06:59 Intake Total 980 1330 1920 Output Total 1600 1075 2350 Balance -620 255 -430 Result Diagrams: 05/24/20 07:35 05/26/20 06:48 Phys Exam - Physical Examination Constitutional: NAD Respiratory: no wheezing, no rales, no rhonchi, clear to auscultation bilateral Cardiovascular: RRR, no significant murmur, no rub Gastrointestinal: soft, non-tender, no distention, positive bowel sounds Dx/Plan - Plan Plan: Delirium 2/2 acute worsening of dementia - Likely related to neuro degenerative process, Lewy Body Dementia - CT confirmed cerebrovascular disease and previous CVA - No signs of acute stroke warranting MRI - PT/OT assessed pt and advised SNF vs. Inpt Rehab,have continued to work with pt, pt apparently has difficulty following commands - Continue home rx - If patient becomes anxious/delirious, start with reorientation, opening blinds during the day, and assisting with patient needs. We will try to avoid atarax at this time given it is on the BEERs criteria. Chronic HTN, HLD, vascular disease - Continue ASA, lisinopril, statin Depression - Was taking two SSRI at home - Will continue sertraline only, son thinks this was supposed to be correct rx - Melatonin PRN QHS Diarrhea - likely not infectious cause given lack of other symptoms, no abx use, or recent hospitalization - Will start fiber supplementation - Likely just loose stools Electrolyte abnormalities, resolved -Had hypokalemia, has been stable, will dc BMP Hx of Diabetes - MD aware - a1c 5.8 - Patient likely does not need to be on outpatient therapy for DM2. Given normal A1c and appropriate fasting glucoses, inpatient therapy and accuchecks not necessary at this time. Code: DNAR Diet: Regular VTE: Lovenox PCP: RESTAURANT WORKER Dispo as of 05/24: PT and OT recommended SNF vs. Inpt Rehab. Pending CM and placement at this time. At this time, patient medically stable to be DC'd when bed becomes available. Addendum - Attending - Attending Attestation Date/Time: 05/30/20 1658 I personally evaluated the patient and discussed the management with Dr. Goldberg. I agree with the History, Examination, Assessment and Plan documented above with any addition or exceptions noted below. Patient stable. We have been awaiting placement for her all week and family feels unable to care for her any longer. She is more than ready for discharge.
[2020-05-30] MEDS: Lisinopril 20 MG TAB PO SCH (08:23)
[2020-05-30] MEDS: Metamucil PACK PO SCH (08:23)
[2020-05-30] MEDS: Carbidopa/Levodopa 25-100 mg Tablet PO SCH ×3 (08:23→21:37)
[2020-05-30] MEDS: Enoxaparin Sodium 40 MG/0.4 ML SYRINGE SC SCH (08:23)
[2020-05-30] MEDS: Pramipexole Di-HCl 0.25 MG TAB PO SCH ×2 (08:23→21:37)
[2020-05-30] MEDS: Melatonin 3 MG TAB PO PRN (21:37)
[2020-05-31] MEDS: Levothyroxine Sodium 100 MCG TAB PO SCH (05:34)
[2020-05-31] MEDS: Pramipexole Di-HCl 0.25 MG TAB PO SCH (08:26)
[2020-05-31] MEDS: Lisinopril 20 MG TAB PO SCH (08:26)
[2020-05-31] MEDS: Enoxaparin Sodium 40 MG/0.4 ML SYRINGE SC SCH (08:26)
[2020-05-31] MEDS: Metamucil PACK PO SCH (08:26)
[2020-05-31] MEDS: Carbidopa/Levodopa 25-100 mg Tablet PO SCH ×2 (08:26→15:33)
--- NOTE | 2020-05-31 09:05 | PDOC.FM ---
- Subjective Subjective: Patient overall doing well, became tearful when talking about leaving the hospital, wants to go home, denies CP, abdominal pain. - Objective MAR Reviewed: Yes Vital Signs & Weight: Vital Signs (12 hours) Temp Pulse Resp BP BP Pulse Ox 05/31/20 08:26 112/72 05/31/20 08:11 98.1 F 70 14 112/72 95 05/30/20 23:34 98.5 F 60 16 106/61 96 Weight Weight 88.451 kg I&O: 05/30/20 05/31/20 06/01/20 06:59 06:59 06:59 Intake Total 1920 1380 Output Total 2350 1300 Balance -430 80 Result Diagrams: 05/24/20 07:35 05/26/20 06:48 Phys Exam - Physical Examination Constitutional: NAD Respiratory: no wheezing, no rales, no rhonchi Cardiovascular: RRR, no significant murmur, no rub Gastrointestinal: soft, non-tender, no distention Dx/Plan - Plan Plan: Delirium 2/2 acute worsening of dementia - Likely related to neuro degenerative process, Lewy Body Dementia - CT confirmed cerebrovascular disease and previous CVA - No signs of acute stroke warranting MRI - PT/OT assessed pt and advised SNF vs. Inpt Rehab,have continued to work with pt, pt apparently has difficulty following commands - Continue home rx - If patient becomes anxious/delirious, start with reorientation, opening blinds during the day, and assisting with patient needs. We will try to avoid atarax at this time given it is on the BEERs criteria. Chronic HTN, HLD, vascular disease - Continue ASA, lisinopril, statin Depression - Was taking two SSRI at home - Will continue sertraline only, son thinks this was supposed to be correct rx - Melatonin PRN QHS Diarrhea - likely not infectious cause given lack of other symptoms, no abx use, or recent hospitalization - Will start fiber supplementation - Likely just loose stools Electrolyte abnormalities, resolved -Had hypokalemia, has been stable, will dc BMP Hx of Diabetes - MD aware - a1c 5.8 - Patient likely does not need to be on outpatient therapy for DM2. Given normal A1c and appropriate fasting glucoses, inpatient therapy and accuchecks not necessary at this time. Code: DNAR Diet: Regular VTE: Lovenox PCP: PROFESSOR OF LAW Dispo as of 05/24: PT and OT recommended SNF vs. Inpt Rehab. Pending CM and placement at this time. At this time, patient medically stable to be DC'd when bed becomes available. Addendum - Attending - Attending Attestation Date/Time: 05/31/20 9917 I personally evaluated the patient and discussed the management with Dr. Goldberg I agree with the History, Examination, Assessment and Plan documented above with any addition or exceptions noted below. Accepted for placement today. Ok to d/c. Natanael
[2020-05-31 16:54] VITALS: BP 126/77; TEMP 98.4
--- NOTE | 2020-05-31 19:47 | DIS ---
DATE OF ADMISSION: 05/21/2020 DATE OF DISCHARGE: 05/31/2020 RESIDENT: Nathan Goldberg MD ADMITTING ATTENDING: Dr. Robertson DISCHARGE ATTENDING: Dr. Wilson CONSULTATIONS: None. PROCEDURES: The patient had multiple imaging studies including hip x-ray with no acute fractures. Brain CT with no acute intracranial processes. Pelvic x-ray with no acute fracture. Lower extremity CT of the left femur showed no acute osseous abnormality. Chest x-ray showing concern for bibasilar atelectasis, no acute process. PRIMARY DIAGNOSIS: Encephalopathy due to unknown cause. SECONDARY DIAGNOSES: Hypertension, hyperlipidemia, peripheral vascular disease, depression, diarrhea, hypokalemia, history of diabetes, delirium due to worsening dementia. DISCHARGE MEDICATIONS: 1. Tylenol 650 mg p.o. q.6 hours p.r.n. 2. Tums 1000 mg p.o. q.4 hours p.r.n. 3. Carbidopa-levodopa one tablet p.o. t.i.d. 4. Levothyroxine 100 mcg one tablet p.o. daily. 5. Lisinopril 20 mg p.o. daily. 6. Imodium 2 mg p.o. daily p.r.n. for diarrhea. 7. Melatonin 3 mg p.o. at bedtime p.r.n. for insomnia. 8. Pramipexole 0.25 mg p.o. b.i.d. 9. Metamucil one pack p.o. daily. 10. Zoloft 100 mg p.o. daily. DISCONTINUED MEDICATIONS: Son, Jose De Jesus, reported during hospital stay that the patient was previously on medications for diabetes including Januvia. Hemoglobin A1c was checked in patient that was 5.8. Son reports that mother had not been on medications for a few months. Given this information, Januvia was not restarted. HISTORY OF PRESENT ILLNESS/HOSPITAL COURSE: The patient is a 75-year-old female, who presented to the ER due to complaint of worsening mental status with recurrent falls per her son. Son gave most of the history including two previous CVAs and a diagnosis of degenerative brain disease, concern for Lewy body dementia. He reported that she has been falling more frequently and he felt that he could not take care of her. All imaging studies were negative as above. During hospital stay, the patient was stable and had minimal concerns. The patient had periods of anxiousness that were initially relieved with Atarax. We tried to avoid these medications given their effects on acute delirium. During the rest of the hospital stay, the patient was able to be reoriented and was given melatonin p.r.n. for help with insomnia. The patient had fasting blood glucoses less than 120 during the hospital admission. Vital signs were stable. Labs otherwise concerning for mild normocytic anemia ranging from 11.5 to 12 of hemoglobin. DISPOSITION: Stable. DISCHARGE INSTRUCTIONS: [place] [facility] [facility] 2. Diet: Regular. 3. Activity: As tolerated. 4. Followup: Please follow up with PCP within 2 weeks. Have discussion about continuation or discontinuation of diabetes medication. Job ID: [id number] JOEL
--- NOTE | 2020-06-01 05:40 | PQF ---
CLINICAL DOCUMENTATION CLARIFICATION FORM: Dear : Renée Wilson Date / Time: 06/01/20 4769 Please exercise your independent, professional judgment in responding to the clarification form. Clinical indicators are provided on the bottom of this form for your review In your clinical opinion based on clinical findings below, can you pleas specify type of Encephalopathy: Please check appropriate box(es): [ ] Metabolic [ ] Toxic [ x] In the setting of underlying dementia [ ] Unspecified [ x ] Other diagnosis, please specify ____ischemic/neurodegerative [ ] Unable to determine Physician Signature: Date/Time: For continuity of documentation, please document condition throughout progress notes and discharge summary. Thank You. To be completed by CDI/Coding staff for physician review: Present Clinical Indicators - Signs / Symptoms / Labs Results and Location in Medical Record [x] BP 124/64, Pulse 73, Resp 18, Temp 97.7 Vital signs 05/20 [x] Brain CT: No intracranial post traumatic sequelae Imaging Dr Turner 05/20 [x] Worsening mental status and recurrent fall H&P p1 05/20 Dr Rodriguez [x] He had declining mental status since first CVA 2 years ago H&P p1 05/20 Dr Rodriguez [x] Encephalopathy subacute on chronic, Likley related to degenerative process H&P p3 05/20 Dr Rodriguez [x] Delirium 2/2 acute worsening of dementia, likely related to neuro degenerative process, lewy body dementia HPN p2 05/27 Dr Jacobson Present Risk Factors Results and Location in Medical Record [x] 75 year-old Female H&P p1 05/20 Dr Rodriguez [x] Hx of CVA H&P p1 05/20 Dr Rodriguez [x] Neurodegenerative dementia H&P p1 05/20 Dr Rodriguez [x] HTN H&P p1 05/20 Dr Rodriguez [x] Depression H&P p1 05/20 Dr Rodriguez [x] Repeated fall ED Notes 05/21 [x] Hypokalemia PN 05/23 [x] DM PN 05/28 Present Treatments Results and Location in Medical Record [x] IVF NS 1L AUG 06 [x] Mirapex 0.25 mg MAR 05/20 [x] Lactated Ringers 1L AUG 06 [x] Atarax 25 mg oral AUG 06 [x] PT/OT H&P p3 05/20 Dr Rodriguez [x] Monitor and replacement of electrolyte PN 05/23 CDS/Dope House Operator Helper Signature: Leena Stacy Phone #: ext [phone] Date/Time: 06/01/20 0432 This is a permanent part of the Medical Record [facility]
== END 2020-05-31 17:00 | DRG 57 ==
LOC: ERS 04:24 → SURG A 15:05 → OBSVTOIN 05-21 09:18
PROVIDERS: ADMIT Family Medicine; ATTEND Family Medicine
DX: G31.83 Neurocognitive disorder with Lewy bodies (principal); F05 Delirium due to known physiological condition; G93.49 Other encephalopathy; Z66 Do not resuscitate; Z20.822 Contact with and (suspected) exposure to COVID-19; Z23 Encounter for immunization; F02.80 Dementia in other diseases classified elsewhere, unspecified severity, without behavioral disturbance, psychotic disturbance, mood disturbance, and anxiety; I10 Essential (primary) hypertension; E78.5 Hyperlipidemia, unspecified; F32.9 Major depressive disorder, single episode, unspecified; E87.6 Hypokalemia; E11.51 Type 2 diabetes mellitus with diabetic peripheral angiopathy without gangrene; R19.7 Diarrhea, unspecified; Z88.1 Allergy status to other antibiotic agents; Z86.73 Personal history of transient ischemic attack (TIA), and cerebral infarction without residual deficits; Z90.710 Acquired absence of both cervix and uterus; Z79.899 Other long term (current) drug therapy; Z79.890 Hormone replacement therapy; Z79.84 Long term (current) use of oral hypoglycemic drugs
CPT/HCPCS: 36415; 36416; 51701; 70450; 71045; 72170; 80048; 80053; 81003; 82550; 83036; 83735; 84100; 84443; 84484; 85025; 87635; 90471; 90662; 93005; 93010; G0008; G0378; J1650; J3475; J3480; J3490; J7050; U0003

== ENCOUNTER 2020-07-20 01:29 | Emergency (ER) | payer MEDICARE, SELFPAY ==
[2020-07-20] MEDS ORDERED: Acetaminophen 325 MG TAB ONE (03:03)
--- NOTE | 2020-07-20 07:26 | CT ---
PRELIMINARY REPORT/[facility]/EMERGENCY AFTER HOURS PROCEDURE: EXAM: CT Head Without Intravenous Contrast. CLINICAL HISTORY: 75-year-old female presents to the ED with complaints of a fall from a wheelchair. Per EMS patient wa s rolling backwards in her wheelchair and tipped over backwards, hitting her head. Patient's son stat es that he heard a "thud". Son denies any loss of consciousness. Patient denies any neck pain, back p ain, shortness of breath, chest pain, or abdominal pain. Patient has a history of a degenerative neur on disease. TECHNIQUE: Axial computed tomography images of the head/brain without intravenous contrast. COMPARISON: CT\\SR - CT BRAIN WO CON - 05/20/2020 05:18 AM GRAD INTERN FINDINGS: BRAIN: Small bilateral basal gangliar low-attenuation foci are present, similar to the appearance on prior e xam. VENTRICLES: No hydrocephalus. ORBITS: The orbits are unremarkable. SINUSES AND MASTOIDS: The paranasal sinuses and mastoid air cells are clear. SOFT TISSUES: No significant facial or scalp soft tissue swelling evident. No radiopaque foreign body is seen. BONES: No acute skull fracture. IMPRESSION: 1. No evidence of acute intracranial hemorrhage. 2. Stable small bilateral punctate foci of chronic basal gangliar lacunar infarction. ELECTRONICALLY SIGNED BY: Pelon Mosley MD Jul 20, 2020 2:49:43 AM GRAD INTERN This report is intended for review by the ordering physician only, in accordance of law. If you recei ve this report in error, please call [facility] at [phone]. FINAL REPORT HEAD CT WITHOUT CONTRAST: COMPARISON: 05/20/2020. HISTORY: Head injury. FINDINGS: No parenchymal hemorrhage. No extra-axial hematoma. No midline shift. Basilar cisterns are patent. Brain volume is age-appropriate. Cortical borrego-white matter differentiation is preserved. No hydrocephalus. There are chronic small vessel ischemic changes of white matter. Intact calvarium. Adequate aeration of sinuses and mastoid air cells. IMPRESSION: 1. This report is in agreement with initial report by [facility]. 2. No acute intracranial process. POS: PPP
--- NOTE | 2020-07-20 07:53 | RAD ---
CHEST 1 VIEW: Date: 07/20/2020 COMPARISON: 05/20/2020. HISTORY: Fall. Chest pain. FINDINGS: Atherosclerosis of aorta. Normal cardiac silhouette. Pulmonary vessels and hilum are normal. Costophr enic angles are clear. Chronic changes of lung parenchyma without mass or consolidation. No pneumotho rax or acute osseous abnormalities. IMPRESSION: 1. No acute cardiopulmonary process. 2. Atherosclerosis. POS: PPP
--- NOTE | 2020-07-20 07:57 | RAD ---
LUMBAR SPINE 3 VIEWS: Date: 07/20/2020 HISTORY: Pain. Fall from wheelchair. FINDINGS: Straightening of lumbar lordosis is presumed to be due to patient position. There are five lumbar-typ e vertebrae. Lumbar spine vertebral body height is maintained. No fracture. Mild loss of disc space h eight and osteophyte formation from L1-L2 through L4-L5. 0.3 cm of retrolisthesis of L3 upon L4. Mild facet hypertrophy at L4-L5 and L5-S1. Visualized sacrum and bony pelvis are intact. IMPRESSION: No fracture. POS: PPP
== END 2020-07-20 04:25 | disposition home or self-care (01) ==
LOC: ERS 01:29
DX: S00.03XA Contusion of scalp, initial encounter (principal); R07.89 Other chest pain; M54.5 Low back pain; Z86.73 Personal history of transient ischemic attack (TIA), and cerebral infarction without residual deficits; V00.811A Fall from moving wheelchair (powered), initial encounter
CPT/HCPCS: 70450; 71045; 72100; 93005

== ENCOUNTER 2020-08-06 15:42 | Emergency (ER) | payer MEDICARE, OTHER | END 2020-08-06 19:04 | disposition home or self-care (01) | LOC: ERS 15:42 | DX: S80.212A Abrasion, left knee, initial encounter (principal); S80.211A Abrasion, right knee, initial encounter; M54.9 Dorsalgia, unspecified; V89.2XXA Person injured in unspecified motor-vehicle accident, traffic, initial encounter | CPT/HCPCS: 72072; 72100 ==

== ENCOUNTER 2020-10-11 09:12 | Emergency (ER) | payer MEDICARE ==
[2020-10-11 09:38] LABS: #Basophils 0.1 thou/uL (0.0-0.2); #Eosinphils 0.1 thou/uL (0.0-0.7); #Lymphocytes 1.9 thou/uL (1.20-3.40); #Monocytes 0.4 thou/uL (0.11-0.59); #Neutrophils 2.2 thou/uL (1.40-6.50); %Basophils 1.1 % (0.0-1.0); %Eosinophils 2.5 % (0.0-10.0); %Lymphocytes 40.8 % (21.0-51.0); %Monocytes 8.7 % (0.0-10.0); %Neutrophils 46.9 % (42.0-75.0); Mean Corpuscular HGB CONC 32.6 g/dL (32.0-36.0); Mean Corpuscular Hemoglobin 28.7 pg (27.0-31.0); Mean Platelet Volume 8.3 fL (7.4-10.4); Platelet Count 179 thou/uL (130-400); RBC Distribution Width 12.9 % (11.5-14.5); Red Blood Cell (RBC) Count 4.52 mill/uL (4.20-5.40); White Blood Cell (WBC) Count 4.6 thou/uL (4.8-10.8)
[2020-10-11 10:01] LABS: ALT (SGPT) Less than 7 U/L (8-55); AST (SGOT) 14 U/L (5-34); Albumin 3.8 g/dL (3.4-4.8); Alkaline Phosphatase 85 U/L (40-110); Anion Gap 9 mmol/L (10-20); BUN (Urea Nitrogen) 10 mg/dL (9.8-20.1); Bilirubin, Total 0.4 mg/dL (0.2-1.2); Calc. Creatinine Clearance 0 mL/min (70-130); Calcium 9.1 mg/dL (7.8-10.44); Carbon Dioxide 30 mmol/L (23-31); Chloride 106 mmol/L (98-107); Globulin 2.8 g/dL (2.4-3.5); Glucose 90 mg/dL (83-110); Potassium 3.8 mmol/L (3.5-5.1); Protein, Total 6.6 g/dL (5.8-8.1); Sodium 141 mmol/L (136-145)
[2020-10-11 10:10] LABS: Clarity Clear (Clear); Glucose, Urine (Dipstick) Normal (Negative); Leukocyte Negative Leu/uL (Negative); Nitrite Negative (Negative); Protein, Urine (Dipstick) Negative (Neg-Trace); Specific Gravity, Urine 1.016 (1.002-1.036)
[2020-10-11 10:11] LABS: Bilirubin Negative (Negative); Blood, Urine Negative (Negative); Ketone, Urine Negative (Negative); Urobilinogen Normal mg/dL (Less than 2)
[2020-10-11 11:06] LABS: PTT 33.7 sec (22.9-36.1); Prothrombin Time 13.4 sec (12.0-14.7)
== END 2020-10-11 11:40 | disposition home or self-care (01) ==
LOC: ERS 09:12
DX: S00.03XA Contusion of scalp, initial encounter (principal); Z86.73 Personal history of transient ischemic attack (TIA), and cerebral infarction without residual deficits; Z79.82 Long term (current) use of aspirin; Z79.899 Other long term (current) drug therapy; W18.09XA Striking against other object with subsequent fall, initial encounter
CPT/HCPCS: 36415; 51701; 70450; 71045; 72125; 80053; 81003; 84484; 85025; 85610; 85730; 93005

== ENCOUNTER 2021-03-02 12:55 | Inpatient (IN) | payer MEDICARE ==
[~2021-03-02 12:55] MED LIST: Iopamidol-370 76% 500 ML 1 ML ONE
[2021-03-02 13:23] LABS: #Eosinphils 0.2 thou/uL (0.0-0.7); #Lymphocytes 1.7 thou/uL (1.20-3.40); #Monocytes 0.6 thou/uL (0.11-0.59); #Neutrophils 3.4 thou/uL (1.40-6.50); %Basophils 0.5 % (0.0-1.0); %Lymphocytes 29.1 % (21.0-51.0); %Monocytes 9.9 % (0.0-10.0); %Neutrophils 57.4 % (42.0-75.0); Hemoglobin 12.8 g/dL (12.0-16.0); Mean Corpuscular HGB CONC 32.7 g/dL (32.0-36.0); Mean Corpuscular Hemoglobin 29.3 pg (27.0-31.0); Mean Corpuscular Volume 89.8 fL (78.0-98.0); Mean Platelet Volume 9.1 fL (7.4-10.4); Platelet Count 184 thou/uL (130-400); Red Blood Cell (RBC) Count 4.37 mill/uL (4.20-5.40); White Blood Cell (WBC) Count 5.8 thou/uL (4.8-10.8)
[2021-03-02 13:33] LABS: Prothrombin Time 14.1 sec (12.0-14.7)
[2021-03-02 13:34] LABS: PTT 36.8 sec (22.9-36.1)
[2021-03-02 13:35] LABS: INR-International Normal Ratio 1.1
[2021-03-02 13:38] LABS: ALT (SGPT) 9 U/L (8-55); AST (SGOT) 15 U/L (5-34); Albumin 3.7 g/dL (3.4-4.8); Alkaline Phosphatase 93 U/L (40-110); Anion Gap 11 mmol/L (10-20); BUN (Urea Nitrogen) 12 mg/dL (9.8-20.1); Bilirubin, Total 0.7 mg/dL (0.2-1.2); CK (CPK) 179 U/L (29-168); Calc. Creatinine Clearance 0 mL/min (70-130); Carbon Dioxide 27 mmol/L (23-31); Chloride 106 mmol/L (98-107); Glucose 120 mg/dL (83-110); Potassium 4.4 mmol/L (3.5-5.1); Protein, Total 6.7 g/dL (5.8-8.1); Sodium 140 mmol/L (136-145)
[2021-03-02 16:39] LABS: Bilirubin Negative (Negative); Blood, Urine Negative (Negative); Clarity Clear (Clear); Glucose, Urine (Dipstick) Normal (Negative); Ketone, Urine Negative (Negative); Leukocyte Negative Leu/uL (Negative); Nitrite Negative (Negative); Protein, Urine (Dipstick) Negative (Neg-Trace); Urobilinogen Normal mg/dL (Less than 2)
[2021-03-02] MEDS ORDERED: Acetaminophen 650 MG Suppository PR PRN (16:50)
[2021-03-02] MEDS ORDERED: Ondansetron ODT 4 MG TAB PO PRN (16:50)
[2021-03-02] MEDS: Rosuvastatin 20 MG TAB PO SCH (21:36)
[2021-03-03 05:51] LABS: Hemoglobin A1c 5.7 % (4.0-6.0)
[2021-03-03 06:09] LABS: Cardiac Risk 4.6 (Less than 4.5)
[2021-03-03] MEDS: Carbidopa/Levodopa 25-100 mg Tablet PO SCH ×3 (08:30→19:56)
[2021-03-03] MEDS: Enoxaparin Sodium 40 MG/0.4 ML SYRINGE SC SCH (08:30)
[2021-03-03] MEDS ORDERED: FLU VACC QS2021-22(65YR UP)/PF 240 MCG/0.7 ML SYRINGE IM ONE (09:00)
[2021-03-03] MEDS ORDERED: Magnevist 469MG/ML 20 ML VIAL ONE (11:49)
[2021-03-03] MEDS ORDERED: Lorazepam 2 MG/ML VIAL SLOW IVP SCH (12:15)
[2021-03-03 12:25] LABS: SARS-CoV-2 PCR by NAA Not Detected (NotDetected)
[2021-03-03] MEDS: Aspirin 81 mg Enteric Coated Tablet PO SCH (14:11)
[2021-03-03 14:25] VITALS: BMI 36.9
[2021-03-03] MEDS: Melatonin 3 MG TAB PO PRN (19:55)
[2021-03-03] MEDS: Rosuvastatin 20 MG TAB PO SCH (19:56)
[2021-03-03] MEDS: Pramipexole Di-HCl 0.25 MG TAB PO SCH (19:56)
[2021-03-04] MEDS ORDERED: Levothyroxine Sodium 100 MCG TAB PO SCH (06:00)
[2021-03-04] MEDS: Aspirin 81 mg Enteric Coated Tablet PO SCH (08:02)
[2021-03-04] MEDS: Enoxaparin Sodium 40 MG/0.4 ML SYRINGE SC SCH (08:03)
[2021-03-04] MEDS: Carbidopa/Levodopa 25-100 mg Tablet PO SCH ×3 (08:03→20:42)
[2021-03-04] MEDS: hydrOXYzine 25 MG TAB PO PRN (16:48)
[2021-03-04] MEDS ORDERED: Diphenoxylate HCl/Atropine Tablet PO PRN (17:25)
[2021-03-04] MEDS: Pramipexole Di-HCl 0.25 MG TAB PO SCH (20:42)
[2021-03-04] MEDS: Rosuvastatin 20 MG TAB PO SCH (20:42)
[2021-03-05] MEDS: Levothyroxine Sodium 125 MCG TAB PO SCH (05:31)
[2021-03-05] MEDS: Aspirin 81 mg Enteric Coated Tablet PO SCH (08:26)
[2021-03-05] MEDS: Carbidopa/Levodopa 25-100 mg Tablet PO SCH ×3 (08:27→20:35)
[2021-03-05] MEDS: Enoxaparin Sodium 40 MG/0.4 ML SYRINGE SC SCH (08:28)
[2021-03-05] MEDS: hydrOXYzine 25 MG TAB PO PRN (08:28)
[2021-03-05 10:20] LABS: Bacteria/HPF 4+ HPF (None Seen); Bilirubin Negative (Negative); Blood, Urine 3+ (Negative); Clarity Turbid (Clear); Glucose, Urine (Dipstick) Normal (Negative); Ketone, Urine Negative (Negative); Leukocyte 75 Leu/uL (Negative); Nitrite Negative (Negative); Protein, Urine (Dipstick) Negative (Neg-Trace); Specific Gravity, Urine 1.012 (1.002-1.036); Squamous Epithelial None Seen HPF (0-3); Urobilinogen Normal mg/dL (Less than 2); pH, Urine 6.5 (5.0-9.0)
[2021-03-05 10:51] LABS: Urine Culture Reflex Yes Yes
[2021-03-05] MEDS: cefTRIAXone\\ROCEPHIN 1 GM in Sodium Chloride 0.9% 100 ML IVPB SCH (15:52)
[2021-03-05] MEDS: Rosuvastatin 20 MG TAB PO SCH (20:35)
[2021-03-05] MEDS: Pramipexole Di-HCl 0.25 MG TAB PO SCH (20:36)
[2021-03-06] MEDS: Acetaminophen 325 MG TAB PO PRN ×2 (00:53→22:22)
[2021-03-06] MEDS: Melatonin 3 MG TAB PO PRN ×2 (00:53→22:23)
[2021-03-06] MEDS: hydrOXYzine 25 MG TAB PO PRN ×3 (00:54→22:23)
[2021-03-06] MEDS: Levothyroxine Sodium 125 MCG TAB PO SCH (05:49)
[2021-03-06] MEDS: Enoxaparin Sodium 40 MG/0.4 ML SYRINGE SC SCH (08:51)
[2021-03-06] MEDS: Aspirin 81 mg Enteric Coated Tablet PO SCH (08:51)
[2021-03-06] MEDS: Carbidopa/Levodopa 25-100 mg Tablet PO SCH ×3 (08:51→22:22)
[2021-03-06] MEDS: cefTRIAXone\\ROCEPHIN 1 GM in Sodium Chloride 0.9% 100 ML IVPB SCH (13:59)
[2021-03-06] MEDS: Rosuvastatin 20 MG TAB PO SCH (22:21)
[2021-03-06] MEDS: Pramipexole Di-HCl 0.25 MG TAB PO SCH (22:21)
[2021-03-07] MEDS: Levothyroxine Sodium 125 MCG TAB PO SCH (06:57)
[2021-03-07] MEDS: Carbidopa/Levodopa 25-100 mg Tablet PO SCH ×3 (08:51→19:44)
[2021-03-07] MEDS: Aspirin 81 mg Enteric Coated Tablet PO SCH (08:51)
[2021-03-07] MEDS: Enoxaparin Sodium 40 MG/0.4 ML SYRINGE SC SCH (08:51)
[2021-03-07] MEDS ORDERED: Communication Order-Pharmacy FS ONE (14:46)
[2021-03-07] MEDS: cefTRIAXone\\ROCEPHIN 1 GM in Sodium Chloride 0.9% 100 ML IVPB SCH (14:59)
[2021-03-07] MEDS: hydrOXYzine 25 MG TAB PO PRN ×2 (14:59→19:46)
[2021-03-07] MEDS: Acetaminophen 325 MG TAB PO PRN (19:44)
[2021-03-07] MEDS: Melatonin 3 MG TAB PO PRN (19:46)
[2021-03-07] MEDS: Pramipexole Di-HCl 0.25 MG TAB PO SCH (19:46)
[2021-03-07] MEDS: Rosuvastatin 20 MG TAB PO SCH (19:46)
[2021-03-08] MEDS: Levothyroxine Sodium 125 MCG TAB PO SCH (09:30)
[2021-03-08] MEDS: Aspirin 81 mg Enteric Coated Tablet PO SCH (09:37)
[2021-03-08] MEDS: hydrOXYzine 25 MG TAB PO PRN ×3 (09:37→20:31)
[2021-03-08] MEDS: Carbidopa/Levodopa 25-100 mg Tablet PO SCH ×3 (09:37→20:31)
[2021-03-08] MEDS: Enoxaparin Sodium 80 MG/0.8 ML SYRINGE SC SCH (09:37)
[2021-03-08] MEDS: Melatonin 3 MG TAB PO PRN (20:30)
[2021-03-08] MEDS: Acetaminophen 325 MG TAB PO PRN (20:30)
[2021-03-08] MEDS: Rosuvastatin 20 MG TAB PO SCH (20:30)
[2021-03-08] MEDS: Pramipexole Di-HCl 0.25 MG TAB PO SCH (20:30)
[2021-03-09] MEDS: Levothyroxine Sodium 125 MCG TAB PO SCH (05:30)
[2021-03-09] MEDS: Enoxaparin Sodium 80 MG/0.8 ML SYRINGE SC SCH (10:26)
[2021-03-09] MEDS: Acetaminophen 325 MG TAB PO PRN (10:26)
[2021-03-09] MEDS: Aspirin 81 mg Enteric Coated Tablet PO SCH (10:28)
[2021-03-09] MEDS: hydrOXYzine 25 MG TAB PO PRN (10:28)
[2021-03-09] MEDS: Carbidopa/Levodopa 25-100 mg Tablet PO SCH (10:28)
[2021-03-09 11:56] VITALS: BP 126/55; TEMP 98.3
== END 2021-03-09 13:15 | DRG 69 ==
LOC: ERS 12:55 → 3SE 16:08 → INTOOBSV 16:08 → 3SE 16:14 → UNDOADMIN 16:14 → OBSVTOIN 03-04 14:34
PROVIDERS: ADMIT Family Medicine; ATTEND Family Medicine
DX: G45.9 Transient cerebral ischemic attack, unspecified (principal); R47.01 Aphasia; N39.0 Urinary tract infection, site not specified; Z66 Do not resuscitate; Z20.822 Contact with and (suspected) exposure to COVID-19; I10 Essential (primary) hypertension; E78.5 Hyperlipidemia, unspecified; F32.A Depression, unspecified; G83.11 Monoplegia of lower limb affecting right dominant side; G20 Parkinson's disease; F02.80 Dementia in other diseases classified elsewhere, unspecified severity, without behavioral disturbance, psychotic disturbance, mood disturbance, and anxiety; R29.810 Facial weakness; R33.9 Retention of urine, unspecified; B96.20 Unspecified Escherichia coli [E. coli] as the cause of diseases classified elsewhere; Z88.1 Allergy status to other antibiotic agents; Z79.890 Hormone replacement therapy; Z79.899 Other long term (current) drug therapy; Z90.710 Acquired absence of both cervix and uterus
CPT/HCPCS: 36415; 51701; 70450; 70496; 70498; 70553; 71045; 80053; 80061; 81001; 81003; 82550; 83036; 84443; 84484; 85025; 85520; 85610; 85730; 87077; 87086; 87186; 93005; 93306; 96372; 96374; A9579; G0378; J0696; J1650; J2060; J3490; Q9967; U0003; U0005